=== PATIENT | male | born 1975 ===

== ENCOUNTER 2018-11-16 13:54 | Observation (INO) | payer OTHER ==
[2018-11-16 14:06] VITALS: BMI 29.9
[2018-11-16] MEDS ORDERED: Sodium Chloride 0.9% 1,000 ML IV ONE (15:23)
[2018-11-16 15:46] LABS: BASO % 0.1 % (0.0-2.0); HEMOGLOBIN 15.2 g/dL (12.0-18.0); LYMPH # 0.8 K/uL (1.0-4.3); LYMPH % 4.7 % (20.0-40.0); MEAN CORPUSCULAR HEMOGLOBIN 30.2 pg (27.0-31.0); MEAN CORPUSCULAR HGB CONC 33.9 g/dL (33.0-37.0); MEAN PLATELET VOLUME 9.7 fL (7.2-11.7); MONO # 1.4 K/uL (0.0-0.8); MONO % 7.9 % (0.0-10.0); NEUT # 15.3 K/uL (1.8-7.0); NEUT % 87.3 % (50.0-75.0); PLATELET COUNT 208 K/uL (130-400); RBC 5.03 Mil/uL (4.40-5.90); RED CELL DISTRIBUTION WIDTH 13.4 % (11.5-14.5); WHITE BLOOD COUNT 17.6 K/uL (4.8-10.8)
[2018-11-16 15:58] LABS: ALB/GLOB RATIO 1.6 (1.0-2.1); ALBUMIN 4.7 g/dL (3.5-5.0); ALT/SGPT 18 U/L (21-72); AST/SGOT 21 U/L (17-59); BLOOD UREA NITROGEN 12 mg/dL (9-20); GFR NON-AFRICAN AMERICAN > 60; LIPASE 26 U/L (23-300)
[2018-11-16 15:59] LABS: SQUAMOUS EPITHIAL < 1 /hpf (0-5); URINE BACTERIA RARE (<OCC); URINE BILIRUBIN NEGATIVE (NEGATIVE); URINE BLOOD NEGATIVE (NEGATIVE); URINE CLARITY Clear (Clear); URINE COLOR Yellow (YELLOW); URINE GLUCOSE (UA) NORMAL (Normal); URINE LEUKOCYTE ESTERASE NEG Leu/uL (Negative); URINE PROTEIN NEGATIVE (NEGATIVE); URINE UROBILINOGEN NORMAL mg/dL (0.2-1.0)
--- NOTE | 2018-11-16 16:07 | C.PDOC ---
History Of Present Illness 43 year old male presents to ED with complaint of right sided abdominal pain for one 1 day. Patient reports experiencing one episode of nausea and vomiting. Patient also reports having a subjective fever. Patient states that the pain is mainly to the right flank and hypogastric area. Patient denies diarrhea,hematuria, and dysuria. Time Seen by Provider: 11/16/18 15:08 Chief Complaint (Nursing): Abdominal Pain History Per: Patient History/Exam Limitations: no limitations Onset/Duration Of Symptoms: Days (1) Current Symptoms Are (Timing): Still Present Location Of Pain/Discomfort: Other (right flank and hypogastric area) Quality Of Discomfort: "Pain" Associated Symptoms: Fever, Nausea, Vomiting. denies: Chills, Diarrhea Past Medical History Reviewed: Historical Data, Nursing Documentation, Vital Signs Vital Signs: Last Vital Signs Temp 98.9 F 11/16/18 14:06 Pulse 97 H 11/16/18 14:06 Resp 20 11/16/18 14:06 BP 126/74 11/16/18 14:06 Pulse Ox 100 11/16/18 14:06 - Medical History PMH: Hypercholesterolemia (no medication at this time as per patient) Surgical History: No Surg Hx Family History: States: Unknown Family Hx - Social History Hx Alcohol Use: Yes Hx Substance Use: No Review Of Systems Constitutional: Positive for: Fever. Negative for: Chills, Weakness Respiratory: Negative for: Cough Gastrointestinal: Positive for: Nausea, Vomiting, Abdominal Pain. Negative for: Diarrhea Genitourinary: Negative for: Dysuria, Hematuria Neurological: Negative for: Weakness, Numbness, Dizziness Physical Exam - Physical Exam Appears: Well, Non-toxic, No Acute Distress Skin: Normal Color, Warm, Dry Head: Atraumatic, Normacephalic Neck: Normal ROM, Supple Chest: Symmetrical, No Deformity Cardiovascular: Rhythm Regular, No Murmur Respiratory: No Accessory Muscle Use Gastrointestinal/Abdominal: Tenderness (right flank and hypogastric area) Back: CVA Tenderness (right side) Extremity: Capillary Refill (<2 seconds) Extremity: Bilateral: Atraumatic, Normal Color And Temperature Pulses: Left Radial: Normal, Right Radial: Normal Neurological/Psych: Oriented x3, Normal Speech, Normal Cognition ED Course And Treatment - Laboratory Results Result Diagrams: 11/16/18 15:42 11/16/18 15:42 Lab Results: Total Bilirubin 1.0 mg/dL (0.2-1.3) 11/16/18 15:42 AST 21 U/L (17-59) 11/16/18 15:42 ALT 18 U/L (21-72) L 11/16/18 15:42 Alkaline Phosphatase 85 U/L (38-126) 11/16/18 15:42 Total Protein 7.7 g/dL (6.3-8.3) 11/16/18 15:42 Albumin 4.7 g/dL (3.5-5.0) 11/16/18 15:42 Globulin 3.0 gm/dL (2.2-3.9) 11/16/18 15:42 Albumin/Globulin Ratio 1.6 (1.0-2.1) 11/16/18 15:42 Lipase 26 U/L (23-300) 11/16/18 15:42 Urine Color Yellow (YELLOW) 11/16/18 15:42 Urine Clarity Clear (Clear) 11/16/18 15:42 Urine pH 5.0 (5.0-8.0) 11/16/18 15:42 Ur Specific [place] 1.020 (1.003-1.030) 11/16/18 15:42 Urine Protein Negative mg/dL (NEGATIVE) 11/16/18 15:42 Urine Glucose (UA) Normal mg/dL (Normal) 11/16/18 15:42 Urine Ketones Trace mg/dL (NEGATIVE) 11/16/18 15:42 Urine Blood Negative (NEGATIVE) 11/16/18 15:42 Urine Nitrate Negative (NEGATIVE) 11/16/18 15:42 Urine Bilirubin Negative (NEGATIVE) 11/16/18 15:42 Urine Urobilinogen Normal mg/dL (0.2-1.0) 11/16/18 15:42 Ur Leukocyte Esterase Neg Heather/uL (Negative) 11/16/18 15:42 Urine WBC (Auto) 2 /hpf (0-5) 11/16/18 15:42 Urine RBC (Auto) 1 /hpf (0-3) 11/16/18 15:42 Ur Squamous Epith Cells < 1 /hpf (0-5) 11/16/18 15:42 Urine Bacteria Rare (<OCC) 11/16/18 15:42 ECG: Interpreted By Oh ECG Rhythm: Sinus Rhythm ECG Interpretation: Abnormal Interpretation Of ECG: Nonspecific T wave abnormality Rate From EC O2 Sat by Pulse Oximetry: 100 (RA) Pulse Ox Interpretation: Normal - CT Scan/US Abdomen/Pelvis CT Other Rad Studies (CT/US): Interpreted By Me, Read By Radiologist CT/US Interpretation: Exam Date : 11/16/2018 16:44:01 ( Approved ). Study Comment : Sex / Age : M / 43Y. Creator : Drea Silverman. Dictator : Gabriela Al MD. Locomotive Repairer Diesel : Glass Lined Tank Repairer : Gabriela Al MD. Approver2 : Report Date : 11/16/2018 17:04:12. My Comment : * . PROCEDURE: CT Abdomen and Pelvis without Oral or IV contrast. HISTORY: right flank pain. COMPARISON: None available. TECHNIQUE: Contiguous axial images of the abdomen and pelvis. No oral or IV contrast administered. Coronal and Sagittal reformats generated and reviewed. Radiation dose: Total exam DLP = 1238.21 mGy-cm. This CT exam was performed using one or more of the following dose reduction techniques: Automated exposure control, adjustment of the mA and/or kV according to patient size, and/or use of iterative reconstruction technique. FINDINGS: There is limited evaluation of the solid organs without the administration of IV contrast. LOWER THORAX: Mild bibasilar atelectasis. No visible pleural effusion or pneumothorax. LIVER: Unremarkable unenhanced appearance. GALLBLADDER AND BILE DUCTS: Unremarkable unenhanced appearance. PANCREAS: Unremarkable unenhanced appearance. SPLEEN: Unremarkable unenhanced appearance. ADRENALS: Unremarkable unenhanced appearance. KIDNEYS AND U RETERS: No hydronephrosis or obstructing renal calculus. Punctate nonobstructing bilateral renal calculi. Lobulated appearance of the left kidney. Small partially exophytic left anterior upper pole mass cannot be excluded. Too small to characterize right renal hypodensity, statistically likely cyst. BLADDER: Under distention of the urinary bladder limits evaluation. REPRODUCTIVE: Unremarkable. APPENDIX: Dilated fluid-filled appendix measures approximately 1.4 cm in diameter with extensive associated inflammatory changes and adjacent sub cm lymph nodes. Appearance consistent with acute appendicitis. BOWEL: The stomach is nondistended. Lack of oral contrast limits evaluation for bowel pathology. The bowel loops appear within normal limits of caliber without evidence of intestinal obstruction. Diverticulosis without CT evidence of acute diverticulitis. PERITONEUM: No sig nificant free fluid. No definite free air. LYMPH NODES: No bulky lymphadenopathy identified. VASCULATURE: No significant atherosclerotic calcifications. No aortic aneurysm. BONES: No acute osseous abnormality is detected. OTHER FINDINGS: Small cilw-musrqxc-telo-right fat containing inguinal hernias. IMPRESSION: Dilated fluid-filled appendix measures approximately 1.4 cm in diameter with extensive associated inflammatory changes and adjacent sub cm lymph nodes. Appearance consistent with acute appendicitis. Punctate nonobstructing renal calculi. No hydronephrosis. Lobulated appea blue of the left kidney. Small partially exophytic left anterior upper pole mass cannot be excluded. Too small to characterize right renal hypodensity, statistically likely cyst. Diverticulosis without CT evidence of acute diverticulitis. Small abkv-kxtkxzt-uhse-right fat containing inguinal hernias. Findings discussed with BARBARA Jewell resident on 11/16/18 at 5:17 p.m. Medical Decision Making Medical Decision Making: Impression: 43 year old with right sided abdominal pain Plan: Abdomen/Pelvis CT Patient given IV fluids and Toradol IVP. Labs ordered with UA and urine culture for patient. Differential Dx: Including but not limited to appendicitis and cholelithiasis. 1720 notified by radiology pt has appendicitis. pt made aware, called pt's pmd, Dr Weinstein and discussed with him, called surgical sales representative and spoke to her as well, she will soon come see patient. 1810 informed by surgical sales representative that they cannot come to see pt immediately secondary to conference at [place]. [address] Carter, surgery on-call, to discuss findings and course of discharge. 1820 Dr Spear, resident at pt's bedside, can admit to Dr Carter. Disposition Discussed With : Cinda Carter Doctor Will See Patient In The: Hospital - Disposition Disposition: HOSPITALIZED Disposition Time: 18:23 Forms: [facility] ([place]) - Clinical Impression Clinical Impression: Appendicitis - PA / TRADEMARK ATTORNEY / Resident Statement /DO has reviewed & agrees with the documentation as recorded. (Faiza Guzman) - Scribe Statement The provider has reviewed the documentation as recorded by the Scribe (Faiza Guzman) All medical record entries made by the Scribe were at my direction and person ally dictated by me. I have reviewed the chart and agree that the record accurately reflects my personal performance of the history, physical exam, medical decision making, and the department course for this patient. I have also personally directed, reviewed, and agree with the discharge instructions and disposition.
[2018-11-16 16:44] LABS: LYMPHOCYTE 7 % (20-40); MONOCYTE 6 % (0-10); NEUTROPHIL 87 % (50-75); PLATELET ESTIMATE NORMAL (NORMAL); TOTAL CELLS COUNTED 100
[2018-11-16] MEDS ORDERED: Piperacillin/Tazobact 3.375 GM in Sodium Chloride 100 ML IVPB STA (17:20)
--- NOTE | 2018-11-16 17:28 | CT ---
PROCEDURE: CT Abdomen and Pelvis without Oral or IV contrast. HISTORY: right flank pain COMPARISON: None available. TECHNIQUE: Contiguous axial images of the abdomen and pelvis. No oral or IV contrast administered. Coronal and Sagittal reformats generated and reviewed. Radiation dose: Total exam DLP = 1238.21 mGy-cm. This CT exam was performed using one or more of the following dose reduction techniques: Automated exposure control, adjustment of the mA and/or kV according to patient size, and/or use of iterative reconstruction technique. FINDINGS: There is limited evaluation of the solid organs without the administration of IV contrast. LOWER THORAX: Mild bibasilar atelectasis. No visible pleural effusion or pneumothorax. LIVER: Unremarkable unenhanced appearance. GALLBLADDER AND BILE DUCTS: Unremarkable unenhanced appearance. PANCREAS: Unremarkable unenhanced appearance. SPLEEN: Unremarkable unenhanced appearance. ADRENALS: Unremarkable unenhanced appearance. KIDNEYS AND URETERS: No hydronephrosis or obstructing renal calculus. Punctate nonobstructing bilateral renal calculi. Lobulated appearance of the left kidney. Small partially exophytic left anterior upper pole mass cannot be excluded. Too small to characterize right renal hypodensity, statistically likely cyst. BLADDER: Under distention of the urinary bladder limits evaluation. REPRODUCTIVE: Unremarkable. APPENDIX: Dilated fluid-filled appendix measures approximately 1.4 cm in diameter with extensive associated inflammatory changes and adjacent sub cm lymph nodes. Appearance consistent with acute appendicitis. BOWEL: The stomach is nondistended. Lack of oral contrast limits evaluation for bowel pathology. The bowel loops appear within normal limits of caliber without evidence of intestinal obstruction. Diverticulosis without CT evidence of acute diverticulitis. PERITONEUM: No significant free fluid. No definite free air. LYMPH NODES: No bulky lymphadenopathy identified. VASCULATURE: No significant atherosclerotic calcifications. No aortic aneurysm. BONES: No acute osseous abnormality is detected. OTHER FINDINGS: Small htbh-wkbrnwp-uxat-right fat containing inguinal hernias. IMPRESSION: Dilated fluid-filled appendix measures approximately 1.4 cm in diameter with extensive associated inflammatory changes and adjacent sub cm lymph nodes. Appearance consistent with acute appendicitis. Punctate nonobstructing renal calculi. No hydronephrosis. Lobulated appearance of the left kidney. Small partially exophytic left anterior upper pole mass cannot be excluded. Too small to characterize right renal hypodensity, statistically likely cyst. Diverticulosis without CT evidence of acute diverticulitis. Small ynpl-oqvobke-wuyj-right fat containing inguinal hernias. Findings discussed with BARBARA Jewell resident on 11/16/18 at 5:17 p.m.
[2018-11-16] MEDS ORDERED: Piperacillin/Tazobact 3.375 gm 100 ML IVPB ONE (17:32)
[2018-11-16] MEDS ORDERED: Morphine 4 MG/ML VIAL ONE (17:48)
[2018-11-16 18:31] LABS: INR 1.2; PROTHROMBIN TIME 13.2 SECONDS (9.7-12.2)
[2018-11-16] MEDS: Lactated Ringer's 1,000 ML IV SCH (19:20)
--- NOTE | 2018-11-16 19:20 | CP.PCM.HP ---
History of Present Illness - History of Present Illness History of Present Illness: Surgery: Dr. Carter Pt is a 43M with no PMHx who presents to with complaints of abdominal pain that started last night. Pt states pain started on the R side of his abdomen and got more severe as the night progressed. He denies ever having a similar episode in the past. Pt admits to one episode of vomiting and associated nausea. Admits to subjective fevers/chills. Denies diarrhea, chest pain or SOB. In the ER, pt had a CT abdomen/pelvis which shows dilated appendix with surrounding inflammation consistent with acute appendicitis. Surgery called to evaluate. Currently, pt is resting comfortably. States abdominal pain is still present but well controlled with the pain medication. Denies any more episodes of vomiting. PMHx: denies PSHx: denies SocialHx: denies smoking/drugs, social EtOH FamHx: non-contributory NKDA Present on Admission - Present on Admission Any Indicators Present on Admission: No Review of Systems - Review of Systems All systems: reviewed and no additional remarkable complaints except (as per HPI) Past Patient History - Past Social History Smoking Status: Never Smoked - CARDIAC Hx Hypercholesterolemia: Yes (no medication at this time as per patient) - PSYCHIATRIC Hx Substance Use: No - SURGICAL HISTORY Hx Surgeries: No - ANESTHESIA Hx Anesthesia: No Meds Allergies/Adverse Reactions: Allergies Allergy/AdvReac Type Severity Reaction Status Date / Time No Known Allergies Allergy Verified 11/16/18 14:05 Physical Exam - Constitutional Appears: Well, No Acute Distress - Head Exam Head Exam: ATRAUMATIC, NORMOCEPHALIC - Eye Exam Eye Exam: Normal appearance - ENT Exam ENT Exam: Mucous Membranes Moist - Respiratory Exam Respiratory Exam: NORMAL BREATHING PATTERN - Cardiovascular Exam Cardiovascular Exam: RRR - GI/Abdominal Exam GI & Abdominal Exam: Soft, Tenderness (R side of the abdomen). absent: Distended, Guarding, Rebound - Extremities Exam Extremities exam: Negative for: tenderness - Neurological Exam Neurological exam: Alert, Oriented x3 - Skin Skin Exam: Dry, Warm Results - Vital Signs Recent Vital Signs: Last Vital Signs Temp 98.5 F 11/16/18 17:25 Pulse 82 11/16/18 17:25 Resp 18 11/16/18 17:25 BP 104/64 11/16/18 17:25 Pulse Ox 100 02/28/19 18:39 - Labs Result Diagrams: 11/16/18 15:42 11/16/18 15:42 Labs: Laboratory Results - last 24 hr 11/16/18 11/16/18 11/16/18 15:42 15:42 15:42 WBC 17.6 H RBC 5.03 Hgb 15.2 Hct 44.8 MCV 89.0 MCH 30.2 MCHC 33.9 RDW 13.4 Plt Count 208 MPV 9.7 Neut % (Auto) 87.3 H Lymph % (Auto) 4.7 L [place] % (Auto) 7.9 Eos % (Auto) 0.0 Baso % (Auto) 0.1 Neut # (Auto) 15.3 H Lymph # (Auto) 0.8 L [place] # (Auto) 1.4 H Eos # (Auto) 0.0 Baso # (Auto) 0.0 Neutrophils % (Manual) 87 H Lymphocytes % (Manual) 7 L Monocytes % (Manual) 6 Platelet Estimate Normal PT INR APTT Sodium 139 Potassium 3.8 Chloride 102 Carbon Dioxide 25 Anion Gap 16 BUN 12 Creatinine 0.8 Est GFR ( Amer) > 60 Est GFR (Non-Af Amer) > 60 Random Glucose 108 Calcium 9.0 Total Bilirubin 1.0 AST 21 ALT 18 L Alkaline Phosphatase 85 Total Protein 7.7 Albumin 4.7 Globulin 3.0 Albumin/Globulin Ratio 1.6 Lipase 26 Urine Color Yellow Urine Clarity Clear Urine pH 5.0 Ur Specific [place] 1.020 Urine Protein Negative Urine Glucose (UA) Normal Urine Ketones Trace Urine Blood Negative Urine Nitrate Negative Urine Bilirubin Negative Urine Urobilinogen Normal Ur Leukocyte Esterase Neg Urine WBC (Auto) 2 Urine RBC (Auto) 1 Ur Squamous Epith Cells < 1 Urine Bacteria Rare 11/16/18 18:02 WBC RBC Hgb Hct MCV MCH MCHC RDW Plt Count MPV Neut % (Auto) Lymph % (Auto) [place] % (Auto) Eos % (Auto) Baso % (Auto) Neut # (Auto) Lymph # (Auto) [place] # (Auto) Eos # (Auto) Baso # (Auto) Neutrophils % (Manual) Lymphocytes % (Manual) Monocytes % (Manual) Platelet Estimate PT 13.2 H INR 1.2 APTT 28 Sodium Potassium Chloride Carbon Dioxide Anion Gap BUN Creatinine Est GFR ( Amer) Est GFR (Non-Af Amer) Random Glucose Calcium Total Bilirubin AST ALT Alkaline Phosphatase Total Protein Albumin Globulin Albumin/Globulin Ratio Lipase Urine Color Urine Clarity Urine pH Ur Specific [place] Urine Protein Urine Glucose (UA) Urine Ketones Urine Blood Urine Nitrate Urine Bilirubin Urine Urobilinogen Ur Leukocyte Esterase Urine WBC (Auto) Urine RBC (Auto) Ur Squamous Epith Cells Urine Bacteria - Imaging and Cardiology CT scan - abdomen Status: Image reviewed by me, Report reviewed by me Assessment & Plan - Assessment and Plan (Free Text) Assessment: 43M with acute appendicitis Plan: - OR for lap appendectomy - IV ABX - pain control - d/w Dr. Raul Spear
[2018-11-16] MEDS ORDERED: Succinylcholine Chloride 20 mg/ml Syr (5 ml) IV ONE (20:21)
[2018-11-16] MEDS ORDERED: Propofol 10 mg/ml Inj (20 ML) ONE (20:21)
[2018-11-16] MEDS ORDERED: Rocuronium 10 mg/ml (5 ml) ONE (20:21)
[2018-11-16] MEDS ORDERED: Midazolam 2 MG/2 ML VIAL ONE (20:22)
[2018-11-16] MEDS ORDERED: HYDROmorphone 0.5 mg/0.5 ml ISec IVP PRN (20:45)
[2018-11-16] MEDS ORDERED: Neostigmine 1:1000 (1 mg/ml) Inj ONE (21:36)
[2018-11-16] MEDS ORDERED: Oxycodone/Acetaminophen 5/325 mg Tab PO PRN (21:57)
--- NOTE | 2018-11-16 22:01 | PCM.SURG1 ---
Surgeon's Initial Post Op Note - Surgeon's Notes Surgeon: Dr. Carter Force Dispatcher: Dr. Spear PGY-3 Type of Anesthesia: General Endo Pre-Operative Diagnosis: Acute Appendicitis Operative Findings: necrotic appendix Post-Operative Diagnosis: Same Operation Performed: Laparoscopic Appendectomy Specimen/Specimens Removed: Appendix Estimated Blood Loss: EBL {In ML}: 10 Blood Products Given: N/A Drains Used: No Drains Post-Op Condition: Good Date of Surgery/Procedure: 11/16/18 Time of Surgery/Procedure: 22:00
[2018-11-16] MEDS ORDERED: Lactated Ringer's 1,000 ML IV ONE ×2 (22:20)
[2018-11-16] MEDS ORDERED: Piperacill/Tazo 3.375gm in Dex 3.375 GM/50 ML BAG IVPB SCH (23:00)
[2018-11-16] MEDS: metroNIDAZOLE IV 500 mg/100 ml 500 MG/100 ML BAG IVPB SCH (23:40)
[2018-11-17] MEDS: Piperacill/Tazo 3.375gm in Dex 3.375 GM/50 ML BAG IVPB SCH ×4 (00:56→16:59)
[2018-11-17] MEDS: Lactated Ringer's 1,000 ML IV SCH (05:29)
[2018-11-17] MEDS: metroNIDAZOLE IV 500 mg/100 ml 500 MG/100 ML BAG IVPB SCH ×3 (06:00→22:29)
[2018-11-17 07:42] LABS: HEMOGLOBIN 13.4 g/dL (12.0-18.0); MEAN CELL VOLUME 90.1 fL (80.0-94.0); MEAN CORPUSCULAR HEMOGLOBIN 30.4 pg (27.0-31.0); MEAN CORPUSCULAR HGB CONC 33.8 g/dL (33.0-37.0); MEAN PLATELET VOLUME 9.9 fL (7.2-11.7); RBC 4.42 Mil/uL (4.40-5.90); RED CELL DISTRIBUTION WIDTH 13.6 % (11.5-14.5); WHITE BLOOD COUNT 17.3 K/uL (4.8-10.8)
--- NOTE | 2018-11-17 08:25 | RAD ---
Date of service: 11/16/2018 HISTORY: Preoperative examination COMPARISON: No prior. TECHNIQUE: Chest PA and lateral FINDINGS: LINES AND TUBES: None. LUNG AND PLEURA: The lungs are well inflated and clear. No pleural effusion or pneumothorax. HEART AND MEDIASTINUM: The heart is not enlarged. No aortic atherosclerotic calcifications present. The hilar and mediastinal contours are within normal limits. SKELETAL STRUCTURES: The bony structures are within normal limits for the patient's age. VISUALIZED UPPER ABDOMEN: Normal. OTHER FINDINGS: None. IMPRESSION: No active pulmonary disease.
--- NOTE | 2018-11-17 10:07 | CP.PCM.PN ---
Subjective - Date & Time of Evaluation Date of Evaluation: 11/17/18 Time of Evaluation: 06:55 - Subjective Subjective: Progress note for Dr. Carter. Patient seen and examined at bedside. POD 1 s/p appendectomy. Patient is resting in bed in no acute distress. Patient had fever of 102 overnight for which he recieved IV tylenol. Patient states he has not been out of bed and has not eaten yet. Patient denies chills, nausea, vomiting, diarrhea. Objective - Vital Signs/Intake and Output Vital Signs (last 24 hours): Temp Pulse Resp BP Pulse Ox 98.6 F 91 H 18 94/60 L 97 11/17/18 07:00 11/17/18 07:00 11/17/18 07:00 11/17/18 07:00 11/17/18 07:00 Intake and Output: 11/17/18 11/17/18 06:59 18:59 Intake Total 2700 Balance 2700 - Medications Medications: Current Medications Acetaminophen (Tylenol 325mg Tab) 650 mg PO Q6 PRN PRN Reason: Fever >100.4 F Lactated Ringer's (Lactated Ringer's) 1,000 mls @ 100 mls/hr IV .Q10H REINALDO Last Admin: 11/17/18 05:29 Dose: Not Given Piperacillin Sod/Tazobactam Sod (Zosyn 3.375 Gm Iv Premix) 3.375 gm in 50 mls @ 200 mls/hr IVPB Q6 REINALDO; Protocol Last Admin: 11/17/18 05:29 Dose: 200 mls/hr Metronidazole (Flagyl) 500 mg in 100 mls @ 100 mls/hr IVPB Q8H REINALDO; Protocol Last Admin: 11/17/18 06:00 Dose: 100 mls/hr Morphine Sulfate (Morphine) 2 mg IVP Q4 PRN PRN Reason: Pain, moderate (4-7) Oxycodone/Acetaminophen (Percocet 5/325 Mg Tab) 1 tab PO Q4H PRN PRN Reason: Pain, moderate (4-7) Stop: 11/19/18 21:58 - Labs Labs: 11/17/18 07:29 11/16/18 15:42 PT 13.2 SECONDS (9.7-12.2) H 11/16/18 18:02 INR 1.2 11/16/18 18:02 APTT 28 SECONDS (21-34) 11/16/18 18:02 - Head Exam Head Exam: ATRAUMATIC, NORMOCEPHALIC - Eye Exam Eye Exam: Normal appearance - Respiratory Exam Respiratory Exam: NORMAL BREATHING PATTERN. absent: Respiratory Distress - GI/Abdominal Exam GI & Abdominal Exam: absent: Distended, Guarding, Rebound Additional comments: mild tenderness surrounding incisions - Extremities Exam Extremities Exam: Normal Inspection - Neurological Exam Neurological Exam: Alert, Awake, Oriented x3 - Psychiatric Exam Psychiatric exam: Normal Affect, Normal Mood - Skin Skin Exam: Dry, Normal Color, Warm Assessment and Plan - Assessment and Plan (Free Text) Assessment: 43 year old male POD 1 s/p laparoscopic appendectomy Plan: Continue antibiotics Clear liquid diet Encourage ambulation in the halls D/c tomorrow Further recs as per Dr. Carter. Jaimee Jensen, PGY-1
[2018-11-17] MEDS: Potassium Ch 20mEq in D5-1/2NS 1,000 ML IV SCH (14:30)
[2018-11-18] MEDS: Piperacill/Tazo 3.375gm in Dex 3.375 GM/50 ML BAG IVPB SCH ×3 (01:37→11:14)
[2018-11-18 02:09] VITALS: PULSE 85
[2018-11-18] MEDS: Potassium Ch 20mEq in D5-1/2NS 1,000 ML IV SCH ×2 (02:52→05:34)
[2018-11-18] MEDS: metroNIDAZOLE IV 500 mg/100 ml 500 MG/100 ML BAG IVPB SCH (06:47)
[2018-11-18 07:21] LABS: BASO % 0.1 % (0.0-2.0); EOS % 0.1 % (0.0-4.0); HEMOGLOBIN 12.1 g/dL (12.0-18.0); LYMPH % 6.7 % (20.0-40.0); MEAN CELL VOLUME 90.2 fL (80.0-94.0); MEAN CORPUSCULAR HEMOGLOBIN 30.1 pg (27.0-31.0); MEAN CORPUSCULAR HGB CONC 33.4 g/dL (33.0-37.0); MEAN PLATELET VOLUME 9.2 fL (7.2-11.7); MONO # 0.8 K/uL (0.0-0.8); MONO % 5.5 % (0.0-10.0); NEUT # 13.4 K/uL (1.8-7.0); NEUT % 87.6 % (50.0-75.0); PLATELET COUNT 163 K/uL (130-400); RBC 4.02 Mil/uL (4.40-5.90); RED CELL DISTRIBUTION WIDTH 13.8 % (11.5-14.5); WHITE BLOOD COUNT 15.3 K/uL (4.8-10.8)
[2018-11-18 07:35] LABS: ALB/GLOB RATIO 1.2 (1.0-2.1); ALBUMIN 3.5 g/dL (3.5-5.0); ALT/SGPT 13 U/L (21-72); AST/SGOT 10 U/L (17-59); BLOOD UREA NITROGEN 12 mg/dL (9-20); CALCIUM 7.9 mg/dl (8.6-10.4); GFR NON-AFRICAN AMERICAN > 60
[2018-11-18 07:52] VITALS: O2SAT 97
[2018-11-18 07:57] VITALS: BP 109/71; RESP 20; TEMP 98.3
[2018-11-18 09:04] LABS: BANDS 7 % (0-2); LYMPHOCYTE 10 % (20-40); MONOCYTE 5 % (0-10); NEUTROPHIL 78 % (50-75); PLATELET ESTIMATE NORMAL (NORMAL); TOTAL CELLS COUNTED 100
--- NOTE | 2018-11-20 06:40 | OP ---
PROCEDURE DATE: 11/16/2018 TIME OF PROCEDURE: 2199. PREOPERATIVE DIAGNOSIS: Acute appendicitis. POSTOPERATIVE DIAGNOSIS: Acute appendicitis. OPERATION PERFORMED: Laparoscopic appendectomy. SURGEON: Cinda Carter MD. BRANCH MECHANIC: Marissa Spear DO. TYPE OF ANESTHESIA: General endotracheal. ESTIMATED BLOOD LOSS: 10 mL. DRAINS: No drains. SPECIMEN REMOVED: Appendix. INDICATION: The patient is a 43-year-old male with no significant past medical history, who presented to [facility] with right lower quadrant abdominal pain that started the night prior. In the ED, a CT of abdomen and pelvis was obtained and showed acute appendicitis. The patient was taken to the operating room. DESCRIPTION OF PROCEDURE: Informed consent was obtained and patient was taken to the OR and placed on the operating table in supine position. The left arm was tucked and timeout was performed. General endotracheal anesthesia was induced and abdomen was prepped and draped in usual sterile fashion. A 10 mm incision was made in the natural skin crease below the umbilicus. The fascia was elevated and a Veress needle was inserted, proper position was confirmed by aspiration. Abdomen was insufflated with CO2 to a pressure of 15 mmHg. The patient tolerated the insufflation well. A 10 mm laparoscope was then inserted and the abdomen was inspected. No injuries from the initial trocar placement were noted. Some purulent fluid was noted in the mid right/upper quadrant and the cecum was identified with surrounding inflammation. Under direct visualization, a 5 mm trocar was inserted in the left lower quadrant. Due to the appendix being closer to the right upper quadrant, a 12 mm port was then inserted in the right lower quadrant under direct visualization. The table was placed right side up and the cecum was manipulated with a grasper and the base of the appendix was identified. At this point, the appendix was found to be acutely inflamed and retrocecal with the tip and body completely adherent to the cecum. A [place] grasper was used to create a window between the base of the appendix and the cecum and a white staple load was used to separate the base of the appendix from the cecum. Once this was performed, we used a Harmonic scalpel to make our way through the mesoappendix, towards the tip. Once the appendix was totally from the cecum and the tip of the appendix was identified, it was noted to be necrotic. An EndoCatch bag was then used to retrieve the appendix and removed via the 12 mm port site. The appendiceal stump and right side of the abdomen were thoroughly irrigated with normal saline. Fluid was suctioned from the right upper quadrant and pelvis. Secondary trocars were then removed under direct visualization, no bleeding was noted. The laparoscope was withdrawn and the umbilical trocar was removed. Pneumoperitoneum was evacuated. All trocar sites greater then 5 mm were closed with 0-Vicryl fascial suture. The skin was then approximated with subcuticular sutures of 4-0 Monocryl and Steri-Strips. All counts were correct at the end of the procedure. The patient tolerated the procedure well and was taken to PACU in stable condition. Marissa Spear DO Cinda Carter MD ÁNGEL
--- NOTE | 2018-11-20 22:26 | CARD ---
APPROVED REPORT Date of service: 11/16/2018 EKG Measurement Heart [id number] <Conclusion> Normal sinus rhythm Nonspecific T wave abnormality Abnormal ECG
== END 2018-11-18 12:39 | disposition home or self-care (01) ==
LOC: C.ER 13:54 → C.9E 18:17 → C.5S 22:52
PROVIDERS: ADMIT Specialist; ATTEND Specialist
DX: K35.80 Unspecified acute appendicitis (principal)
CPT/HCPCS: 36415; 44970; 71046; 74176; 80053; 81001; 83690; 85025; 85027; 85610; 85730; 86850; 86900; 87086; 88304; 93005; 96361; 96365; 96366; 96367; 96375; 96376; 99285; G0378; J0131; J1885; J2001; J2250; J2270; J2543; J2704; J2710; J3010; J7030; J7120